=== PATIENT | female | born 1955 | race Caucasian/White ===

== ENCOUNTER 2016-12-21 18:12 | Emergency (ER) | payer BC ==
[~2016-12-21] VITALS: Ht 162.6 cm; Wt 56.7 kg
[2016-12-21 18:43] LABS: BASO # 0.1 x10^3/uL (0.0-0.2); BASO % 1 % (0-3); EOS % 1 % (0-3); HEMATOCRIT 40.5 % (36.0-47.0); HEMOGLOBIN 13.4 g/dL (12.0-15.5); LYMPH # 2.9 x10^3/uL (1.0-4.8); LYMPH % 30 % (24-48); MEAN CORPUSCULAR HEMOGLOBIN 31 pg (25-35); MEAN CORPUSCULAR HGB CONC 33 g/dL (31-37); MEAN CORPUSCULAR VOLUME 95 fL (79-100); MONO % 12 % (0-9); NEUT % 56 % (31-73); PLATELET COUNT 316 x10^3/uL (140-400); RED BLOOD COUNT 4.27 x10^6/uL (3.50-5.40); RED CELL DISTRIBUTION WIDTH 13.7 % (11.5-14.5); WHITE BLOOD COUNT 9.5 x10^3/uL (4.0-11.0)
[2016-12-21 18:51] LABS: PROTHROMBIN TIME PATIENT 12.5 SEC (11.7-14.0)
[2016-12-21 19:11] LABS: CALCIUM 9.7 mg/dL (8.5-10.1); GFR 56.4
[2016-12-21 19:17] LABS: ALBUMIN 3.9 g/dL (3.4-5.0); ALBUMIN/GLOBULIN RATIO 1.1 (1.0-1.7); TOTAL BILIRUBIN 0.4 mg/dL (0.2-1.0); TOTAL PROTEIN 7.3 g/dL (6.4-8.2)
[2016-12-21 21:36] VITALS: BP 121/72
--- NOTE | 2016-12-21 21:45 | PHYS DOC ---
Past Medical History Past Medical History: Anxiety, Other Additional Past Medical Histor: HORMONE THERAPY Past Surgical History: Cholecystectomy Alcohol Use: Rarely Drug Use: None Adult General Chief Complaint Chief Complaint: CHEST PAIN HPI HPI Patient is a 61 year old female who presents with chest pain. The patient reports acute onset of stabbing substernal chest pain while shopping at the [employer] ([employer] about 1 hour prior to arrival. She states pain lasted about 15 minutes then resolved spontaneously, currently free of pain. She denies associated shortness of breath, nausea, reports she felt sweaty. She denies fevers/chills , cough, lower extremity pain/swelling. She denies previous history of similar pain. She denies recent travel or surgery. No known past medical history, denies tobacco use. She has no family history of CAD, DVT/PE. Has a PCP in [facility]. Review of Systems Review of Systems Constitutional: Denies fever or chills Eyes: Denies change in visual acuity HENT: Denies nasal congestion or sore throat Respiratory: Denies cough or shortness of breath Cardiovascular: Reports chest pain, denies edema GI: Denies abdominal pain, nausea, vomiting, bloody stools or diarrhea Musculoskeletal: Denies back pain or joint pain Integument: Denies rash or skin lesions Neurologic: Denies headache, focal weakness or sensory changes Physical Exam Physical Exam Constitutional: Well developed, well nourished, no acute distress, non-toxic appearance. HENT: Normocephalic, atraumatic, bilateral external ears normal, oropharynx moist, nose normal. Eyes: PERRLA, EOMI, conjunctiva normal, no discharge. Neck: supple, no stridor. Cardiovascular: RRR, no murmurs, no edema. Lungs & Thorax: LCTAB, no wheezing, no respiratory distress. no reproducible tenderness with palpation over anterior chest wall. Abdomen: soft, nontender, nondistended. Skin: Warm, dry, no erythema, no rash. Back: No tenderness. Extremities: No tenderness, no edema. no calf tenderness or swelling. Neurologic: Alert and oriented X 3, no focal deficits noted. Psychologic: Affect normal, judgement normal, mood normal. Current Patient Data Vital Signs Vital Signs Date Time Temp Pulse Resp B/P (MAP) Pulse Ox O2 Delivery O2 Flow Rate FiO2 12/21/16 21:36 70 22 121/72 (88) 94 Room Air 12/21/16 18:12 98.1 98.1 Lab Values Laboratory Tests Test 12/21/16 18:30 12/21/16 20:30 White Blood Count 9.5 x10^3/uL (4.0-11.0) Red Blood Count 4.27 x10^6/uL (3.50-5.40) Hemoglobin 13.4 g/dL (12.0-15.5) Hematocrit 40.5 % (36.0-47.0) Mean Corpuscular Volume 95 fL (79-100) Mean Corpuscular Hemoglobin 31 pg (25-35) Mean Corpuscular Hemoglobin Concent 33 g/dL (31-37) Red Cell Distribution Width 13.7 % (11.5-14.5) Platelet Count 316 x10^3/uL (140-400) Neutrophils (%) (Auto) 56 % (31-73) Lymphocytes (%) (Auto) 30 % (24-48) Monocytes (%) (Auto) 12 % (0-9) H Eosinophils (%) (Auto) 1 % (0-3) Basophils (%) (Auto) 1 % (0-3) Neutrophils # (Auto) 5.4 x10^3uL (1.8-7.7) Lymphocytes # (Auto) 2.9 x10^3/uL (1.0-4.8) Monocytes # (Auto) 1.1 x10^3/uL (0.0-1.1) Eosinophils # (Auto) 0.1 x10^3/uL (0.0-0.7) Basophils # (Auto) 0.1 x10^3/uL (0.0-0.2) Prothrombin Time 12.5 SEC (11.7-14.0) Prothrombin Time INR 1.0 (0.8-1.1) PTT 25 SEC (24-38) Sodium Level 138 mmol/L (136-145) Potassium Level 4.0 mmol/L (3.5-5.1) Chloride Level 103 mmol/L (98-107) Carbon Dioxide Level 28 mmol/L (21-32) Anion Gap 7 (6-14) Blood Urea Nitrogen 24 mg/dL (7-20) H Creatinine 1.0 mg/dL (0.6-1.0) Estimated GFR (Cockcroft-Gault) 56.4 BUN/Creatinine Ratio 24 (6-20) H Glucose Level 93 mg/dL (70-99) Calcium Level 9.7 mg/dL (8.5-10.1) Total Bilirubin 0.4 mg/dL (0.2-1.0) Aspartate Amino Transferase (AST) 28 U/L (15-37) Alanine Aminotransferase (ALT) 25 U/L (14-59) Alkaline Phosphatase 66 U/L (46-116) Troponin I Quantitative < 0.017 ng/mL (0.000-0.055) < 0.017 ng/mL (0.000-0.055) SD-Ixd-J-Type Natriuretic Peptide 54 pg/mL (0-124) Total Protein 7.3 g/dL (6.4-8.2) Albumin 3.9 g/dL (3.4-5.0) Albumin/Globulin Ratio 1.1 (1.0-1.7) Laboratory Tests 12/21/16 18:30 Laboratory Tests 12/21/16 18:30 EKG EKG interpreted by me: 1814: NSR rate 76, no STEMI, T wave inversion in lead V1 without ST depression, normal intervals, no ectopy. interpreted by me: 2028: NSR rate 69, no STEMI, T wave inversion persists in lead V1 without ST depression, normal intervals, no ectopy.[] Radiology/Procedures Radiology/Procedures CXR: interpreted by me: no cardiomegaly, no infiltrate, no pneumothorax, no acute process.[] Course & Med Decision Making Course & Med Decision Making Pertinent Labs and Imaging studies reviewed. (See chart for details) The patient presents with chest pain. EMS administered aspirin. She was pain free upon arrival and throughout her visit here. Obtained labs, EKG, chest x- ray. EKG slightly abnormal with T-wave inversion but no ST elevation or depression. Troponin negative. Discussed results with patient. She would be happy to go home as she remains asymptomatic. HEART score is 2, low risk. Obtained repeat EKG and troponin, no change. She remained pain-free. She is comfortable with plan for discharge home. Recommend daily baby aspirin. Follow- up with primary care physician in 2-3 days. May be beneficial to see a circulating process inspector. She was provided with referral for cardiology here but lives in [place] so will likely follow-up with a circulating process inspector recommended by her primary care physician. Return to the emergency department for severe shortness of breath or chest pain, any otherwise worsening condition. Discharged home today in stable condition. [] Dragon Disclaimer Dragon Disclaimer This electronic medical record was generated, in whole or in part, using a voice recognition dictation system. Departure Departure Impression: Primary Impression: Chest pain Disposition: HOME, SELF-CARE Condition: STABLE Referrals: MURRAY STORM (PCP) LAITH OLIVER MD Patient Instructions: Chest Pain (Nonspecific), [id number] Additional Instructions: You were seen in the emergency department today for chest pain. Labs, EKG, chest x-ray did not show serious cause of symptoms. Please rest, drink fluids, take Tylenol or ibuprofen for pain. Consider taking 81 mg of aspirin daily. Follow-up with primary care physician or a circulating process inspector in 2-3 days. Return to the emergency department for severe pain, severe shortness of breath, any otherwise worsening condition. DIANA RAINEY MD Dec 21, 2016 21:45
--- NOTE | 2016-12-22 06:13 | EKG ---
[facility] [address] [place] [address] Test Date: 2016-12-21 Test Time: 18:15:20 Pat Name: FERMIN SOSA Department: Room: Gender: F Core Blower: : 1955 Requested By: DIANA RAINEY Order Number: [id number] Reading MD: Haja Espitia Measurements Intervals [place] Rate: 76 P: 17 DC: 172 QRS: -32 QRSD: 70 T: 39 QT: 354 QTc: 402 Interpretive Statements SINUS RHYTHM ABNORMAL LEFT AXIS DEVIATION LOW LIMB LEAD VOLTAGE LEFT ANTERIOR FASCICULAR BLOCK ABNORMAL ECG RI6.01 No previous ECG available for comparison Electronically Signed On 12-22-2016 17:38:28 CDT by Haja Espitia
--- NOTE | 2016-12-22 06:15 | EKG ---
[facility] [address] [place] [address] Test Date: 2016-12-21 Test Time: 20:29:51 Pat Name: FERMIN SOSA Department: Room: Gender: F Press Feeder: : 1955 Requested By: DIANA RAINEY Order Number: [id number] Reading MD: Haja Espitia Measurements Intervals [place] Rate: 69 P: 31 KS: 170 QRS: -20 QRSD: 72 T: 29 QT: 382 QTc: 411 Interpretive Statements SINUS RHYTHM LEFTWARD AXIS NO SPECIFIC ECG ABNORMALITIES RI6.01 No previous ECG available for comparison Electronically Signed On 12-22-2016 17:39:57 CDT by Haja Espitia
--- NOTE | 2016-12-22 07:40 | RAD ---
Portable chest, 12/21/2016: History: Chest pain, shortness of breath The heart size and pulmonary vascularity are normal. No pulmonary infiltrates are seen. There is no evidence of pleural fluid. IMPRESSION: No acute cardiopulmonary abnormality is detected.
== END 2016-12-21 21:56 | disposition home or self-care (01) ==
LOC: ER 18:12
DX: R07.2 Precordial pain (principal); F41.9 Anxiety disorder, unspecified; Z90.49 Acquired absence of other specified parts of digestive tract
CPT/HCPCS: 36415; 71010; 80053; 83880; 84484; 85027; 85610; 85730; 93005; 99285-25